=== PATIENT | female | born 1940 | race American Indian/Alaskan Native ===

== ENCOUNTER 2016-12-28 15:11 | Emergency (ER) | payer BC ==
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
[2016-12-28] MEDS ORDERED: NORCO 10/325 PO ONE (21:12)
[2016-12-28 22:15] VITALS: BP 170/92
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
== END 2016-12-28 23:40 | disposition left against medical advice (07) ==
LOC: ED 15:11
DX: S09.90XA Unspecified injury of head, initial encounter (principal); S40.012A Contusion of left shoulder, initial encounter; S20.211A Contusion of right front wall of thorax, initial encounter; R91.8 Other nonspecific abnormal finding of lung field; G93.9 Disorder of brain, unspecified; M19.90 Unspecified osteoarthritis, unspecified site; I10 Essential (primary) hypertension; V89.2XXA Person injured in unspecified motor-vehicle accident, traffic, initial encounter; Y93.89 Activity, other specified; Y92.89 Other specified places as the place of occurrence of the external cause; Y99.8 Other external cause status
CPT/HCPCS: 70450; 71250; 72100

== ENCOUNTER 2017-12-28 12:36 | Emergency (ER) | payer BC ==
[2017-12-28 12:49] VITALS: BP 146/80
--- NOTE | 2017-12-28 13:30 | Emergency Department Report ---
ED Rash HPI - HPI Chief Complaint: Skin Rash Stated Complaint: RASH Time Seen by Provider: 12/28/17 13:07 Duration: 1 week Location: Chest, Back, Upper Extremities, Lower Extremities Suspected Cause: Unknown (possibly new laundry detergent) Rash Symptoms: Yes Itching, Yes Blistering, No Facial Swelling, No Tongue/Oral Swelling, No Breathing Difficulties, No Choking Sensation, No Wheezing/Dyspnea, No Peeling, No Fever, No Lightheaded, No Malaise, No Myalgias Severity: moderate Other History: This is a 77 y.o. female that presents with a genearlized rash that is worse to upper back for 1 week. Patient is here with grandson who is not sure what caused rash. She started using a new laundry detergent that received from the [employer] store about 2 weeks ago. She noticed the rash originally on upper back but then it started to spread every where. She is currently not taking anything for itching, but rash itch and worse at night. Denies discharge, swelling, difficulty breathing, drooling, or SOB. ED Review of Systems ROS: Stated complaint: RASH Other details as noted in HPI Constitutional: denies: chills, fever ENT: denies: ear pain, throat pain, congestion Respiratory: denies: cough, shortness of breath, wheezing Cardiovascular: denies: chest pain, palpitations Gastrointestinal: denies: abdominal pain, nausea, vomiting, diarrhea, constipation Skin: lesions (genearlized puritic rash ). denies: rash Neurological: denies: headache, weakness, numbness, paresthesias Psychiatric: denies: anxiety, depression ED Past Medical Hx - Past Medical History Hx Hypertension: Yes (borderline) Hx Congestive Heart Failure: No Hx Diabetes: No Hx Arthritis: Yes Hx Kidney Stones: Yes Hx Asthma: No Hx COPD: No - Surgical History Past Surgical History?: Yes Additional Surgical History: Mastectomy in 2015 - Social History Smoking Status: Never Smoker Substance Use Type: None - Medications Home Medications: Home Medications Medication Instructions Recorded Confirmed Last Taken Type Letrozole 2.5 gm PO DAILY 07/27/13 08/22/13 07/31/13 History Hydrocodone Bit/Acetaminophen 1 each PO Q4-6H PRN #28 tablet 08/02/13 08/22/13 Unknown Rx [Vicodin 5/500] Acetaminophen/Codeine [Tylenol 1 tab PO Q4HR PRN #12 tablet 12/28/16 Unknown Rx /Codeine # 3 tab] Baclofen 20 mg PO BID #20 tablet 12/28/16 Unknown Rx Diclofenac Sodium 75 mg PO BID #14 tablet. 12/28/16 Unknown Rx Prednisone [predniSONE 5 mg (6-Day 5 mg PO .TAPER #1 tab.ds.pk 12/28/17 Unknown Rx Pack, 21 Tabs)] Triamcinolone 0.1% [Kenalog 0.1% 1 applic TP TID #1 tube 12/28/17 Unknown Rx CREAM] Rash Exam - Exam General: Vital signs noted. No distress. Alert and acting appropriately. HEENT: No Periorbital Edema, No Conjuctival Injection, No Chemosis, No Perioral Edema, No Tongue Edema, No Uvular Edema, No Compromised Airway, No Drooling Lungs: Yes Good Air Exchange (Normal Breath Sounds), No Wheezes, No Ronchi, No Stridor, No Cough, No Labored Respirations, No Retractions, No Use of Accessory Muscles, No Other Abnormal Lung Sounds Heart: Yes Regular, No Murmur Skin: Yes Maculopapular Rash (BLE, BUE, anterior trunk and posterior trunk), No Urticarial Rash, No Morbilliform rash, No Bulla(e), No Excoriations, No Weeping , No Tenderness, No Erythema, No Edema, No Encrustations, No Other ED Course Vital Signs 12/28/17 12:46 Temperature 98.1 F Pulse Rate 87 Respiratory 16 Rate Blood Pressure 146/80 O2 Sat by Pulse 98 Oximetry ED Medical Decision Making - Medical Decision Making This is a 77 y.o. female that presents with generalized rash for 1 week. Patient examined by me and stable. No distress noted. Vitals stable. Physical findings susceptible of allergic contact dermatitis. Given dexamethasone 8 mg IM once in ER. Start prednisone taper and triamacolone cream. Discussed plan with patient and she agreed with plan to treat outpatient. Discharged home. Follow up with PCP in 48-72 hours. Critical care attestation.: If time is entered above; I have spent that time in minutes in the direct care of this critically ill patient, excluding procedure time. ED Disposition Clinical Impression: Allergic contact dermatitis Qualifiers: Contact dermatitis trigger: unspecified trigger Qualified Code(s): L23.9 - Allergic contact dermatitis, unspecified cause Disposition: DC-01 TO HOME OR SELFCARE Is pt being admited?: No Does the pt Need Aspirin: No Condition: Stable Instructions: Contact Dermatitis (ED) Additional Instructions: Complete medication as prescribed. Follow up with Primary Care Provider in 2-3 days. Avoid using new detergent to see if that is the cause of rash. Prescriptions: Prednisone [predniSONE 5 mg (6-Day Pack, 21 Tabs)] 5 mg PO .TAPER #1 tab.ds.pk Triamcinolone 0.1% [Kenalog 0.1% CREAM] 1 applic TP TID #1 tube Referrals: [facility] [Outside] - 3-5 Days [facility] [Outside] - 3-5 Days RAJENDRA SCHAFER MD [Staff Physician] - 3-5 Days Time of Disposition: 14:49 Print Language: SALVADOREAN
[2017-12-28] MEDS ORDERED: DECADRON IM ONE (14:49)
== END 2017-12-28 15:02 | disposition home or self-care (01) ==
LOC: ED 12:36
DX: L23.9 Allergic contact dermatitis, unspecified cause (principal); I10 Essential (primary) hypertension; M19.90 Unspecified osteoarthritis, unspecified site; Z90.10 Acquired absence of unspecified breast and nipple; Z87.442 Personal history of urinary calculi
CPT/HCPCS: 96372; 99282; J1100

== ENCOUNTER 2018-12-26 16:59 | Emergency (ER) | payer BC ==
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
[2018-12-26] MEDS ORDERED: ZOFRAN ODT PO ONE (21:31)
[2018-12-26 21:50] LABS: Basophils % (Auto) 0.8 % (0.0-1.8); Eosinophils # (Auto) 0.1 K/mm3 (0.0-0.4); Hematocrit 43.1 % (30.3-42.9); Hemoglobin 14.2 gm/dl (10.1-14.3); Lymphocytes # (Auto) 1.5 K/mm3 (1.2-5.4); Lymphocytes % (Auto) 26.1 % (13.4-35.0); Mean Corpuscular HGB Conc 33 % (30-34); Mean Corpuscular Volume 92 fl (79-97); Monocytes # (Auto) 0.4 K/mm3 (0.0-0.8); Monocytes % (Auto) 6.6 % (0.0-7.3); Platelet Count 159 K/mm3 (140-440); Red Cell Distribution Width 14.9 % (13.2-15.2)
[2018-12-26 21:55] LABS: Bilirubin,Urine NEG (Negative); Blood,Urine SM (Negative); Color,Urine Yellow (Yellow); Mucus,Urine FEW /HPF; Protein,Urine <15 mg/dL mg/dL (Negative); Urobilinogen,Urine < 2.0 mg/dL (<2.0)
--- NOTE | 2018-12-26 22:03 | Emergency Department Report ---
ED Syncope HPI - General Chief Complaint: Syncope Stated Complaint: KNEE PAIN Time Seen by Provider: 12/26/18 21:02 Source: patient, family Exam Limitations: other (memory problems) - History of Present Illness Initial Comments: 78-year-old female with a past medical history of hypertension (not currently on meds), breast cancer status post left breast mastectomy in 2015 currently in remission, and memory problems likely secondary to dementia presents to the hospital with a syncopal episode. Patient lives alone but lives at her residence directly behind her daughter's. While Ambulating outside on the way to her daughter's residence she had a syncopal episode. She cannot recall any preceding symptoms. She is oriented to self, place, but states year is 2008. Patient states she has intermittent chest pain and generalized weakness and fatigue I cannot say whether or not these symptoms preceded her syncopal episode today. She denies headache, nausea, vomiting, dysuria, or fever. She does not have a primary care doctor and has not followed up in several years. Patient uses a cane to ambulate at her baseline - Related Data Allergies/Adverse Reactions: Allergies No Known Allergies Allergy (Unverified 07/27/13 09:40) Home Medications: Ambulatory Orders No Known Home Medications [No Reported Home Medications] 12/26/18 ED Review of Systems ROS: Stated complaint: KNEE PAIN Other details as noted in HPI Comment: All other systems reviewed and negative ED Past Medical Hx - Past Medical History Previous Medical History?: Yes Hx Hypertension: Yes (borderline) Hx Congestive Heart Failure: No Hx Diabetes: No Hx of Cancer: Yes (breast cancer, left breast mastectomy 20) Hx Arthritis: Yes Hx Kidney Stones: Yes Hx Asthma: No Hx COPD: No Additional medical history: "Memory problems possible dementia" - Surgical History Past Surgical History?: Yes Additional Surgical History: Mastectomy in 2014 - Social History Smoking Status: Former Smoker Substance Use Type: Alcohol - Medications Home Medications: Home Medications Medication Instructions Recorded Confirmed Last Taken Type No Known Home Medications [No 12/26/18 12/26/18 Unknown History Reported Home Medications] ED Physical Exam - General Limitations: No Limitations - Other Other exam information: General: No limitations, patient is alert in no acute distress Head exam: Atraumatic, normocephalic Eyes exam: Normal appearance, pupils equal reactive to light, extraocular movem ents intact ENT: Moist mucous membrane, normal oropharynx Neck exam: Normal inspection, full range of motion, no meningismus nontender Respiratory exam: Clear to auscultation bilateral, no wheezes, rales, crackles Cardiovascular: Normal rate and rhythm, normal heart sounds Abdomen: Soft, nondistended, and nontender, with normal bowel sounds, no rebound, or guarding Extremity: Full range of motion normal inspection no deformity Back: Normal Inspection, full range of motion, no tenderness Neurologic: Alert, oriented x32 cranial nerves intact, no motor or sensory deficit, [id number] function intact Psychiatric: normal affect, normal mood Skin: Warm, dry, intact ED Course Vital Signs 12/26/18 12/26/18 12/26/18 17:25 20:30 20:55 Temperature 98.4 F 98.2 F Pulse Rate 72 63 21 L Respiratory 18 21 Rate Blood Pressure 183/77 Blood Pressure 165/117 183/77 [Right] O2 Sat by Pulse 98 99 99 Oximetry 12/26/18 12/26/18 12/26/18 22:01 23:00 23:16 Temperature Pulse Rate 64 72 77 Respiratory 14 17 Rate Blood Pressure 183/90 179/85 194/108 Blood Pressure [Right] O2 Sat by Pulse 99 Oximetry 12/27/18 00:00 Temperature Pulse Rate 70 Respiratory 16 Rate Blood Pressure 146/71 Blood Pressure [Right] O2 Sat by Pulse Oximetry - Consultations Consultation #1: 12/26/18 22:[address] Elkins Neurosurgeon at [facility]. pt and daughter informed ED Medical Decision Making - Lab Data Result diagrams: 12/26/18 21:31 12/26/18 21:31 Lab Results 12/26/18 12/26/18 12/26/18 Range/Units 21:20 21:31 21:31 WBC 5.7 (4.5-11.0) K/mm3 RBC 4.70 (3.65-5.03) M/mm3 Hgb 14.2 (10.1-14.3) gm/dl Hct 43.1 H (30.3-42.9) % MCV 92 (79-97) fl MCH 30 (28-32) pg MCHC 33 (30-34) % RDW 14.9 (13.2-15.2) % Plt Count 159 (140-440) K/mm3 Lymph % (Auto) 26.1 (13.4-35.0) % [place] % (Auto) 6.6 (0.0-7.3) % Eos % (Auto) 1.0 (0.0-4.3) % Baso % (Auto) 0.8 (0.0-1.8) % Lymph # 1.5 (1.2-5.4) K/mm3 [place] # 0.4 (0.0-0.8) K/mm3 Eos # 0.1 (0.0-0.4) K/mm3 Baso # 0.0 (0.0-0.1) K/mm3 Seg Neutrophils % 65.5 (40.0-70.0) % Seg Neutrophils # 3.8 (1.8-7.7) K/mm3 PT (12.2-14.9) Sec. INR (0.87-1.13) APTT (24.2-36.6) Sec. Sodium 141 (137-145) mmol/L Potassium 4.5 (3.6-5.0) mmol/L Chloride 102.8 (98-107) mmol/L Carbon Dioxide 24 (22-30) mmol/L Anion Gap 19 mmol/L BUN 9 (7-17) mg/dL Creatinine 0.9 (0.7-1.2) mg/dL Estimated GFR > 60 ml/min BUN/Creatinine Ratio 10 % Glucose 89 (65-100) mg/dL Calcium 9.6 (8.4-10.2) mg/dL Total Creatine Kinase 107 (30-135) units/L CK-MB (CK-2) 1.8 (0.0-4.0) ng/mL CK-MB (CK-2) Rel Index 1.6 (0-4) Troponin T < 0.010 (0.00-0.029) ng/mL Urine Color Yellow (Yellow) Urine Turbidity Clear (Clear) Urine pH 5.0 (5.0-7.0) Ur Specific [place] 1.015 (1.003-1.030) Urine Protein <15 mg/dl (Negative) mg/dL Urine Glucose (UA) Neg (Negative) mg/dL Urine Ketones Tr (Negative) mg/dL Urine Blood Sm (Negative) Urine Nitrite Neg (Negative) Urine Bilirubin Neg (Negative) Urine Urobilinogen < 2.0 (<2.0) mg/dL Ur Leukocyte Esterase Neg (Negative) Urine WBC (Auto) 1.0 (0.0-6.0) /HPF Urine RBC (Auto) 1.0 (0.0-6.0) /HPF U Epithel Cells (Auto) 3.0 (0-13.0) /HPF Urine Mucus Few /HPF 12/26/18 Range/Units 21:31 WBC (4.5-11.0) K/mm3 RBC (3.65-5.03) M/mm3 Hgb (10.1-14.3) gm/dl Hct (30.3-42.9) % MCV (79-97) fl MCH (28-32) pg MCHC (30-34) % RDW (13.2-15.2) % Plt Count (140-440) K/mm3 Lymph % (Auto) (13.4-35.0) % [place] % (Auto) (0.0-7.3) % Eos % (Auto) (0.0-4.3) % Baso % (Auto) (0.0-1.8) % Lymph # (1.2-5.4) K/mm3 [place] # (0.0-0.8) K/mm3 Eos # (0.0-0.4) K/mm3 Baso # (0.0-0.1) K/mm3 Seg Neutrophils % (40.0-70.0) % Seg Neutrophils # (1.8-7.7) K/mm3 PT 13.0 (12.2-14.9) Sec. INR 0.93 (0.87-1.13) APTT 27.5 (24.2-36.6) Sec. Sodium (137-145) mmol/L Potassium (3.6-5.0) mmol/L Chloride (98-107) mmol/L Carbon Dioxide (22-30) mmol/L Anion Gap mmol/L BUN (7-17) mg/dL Creatinine (0.7-1.2) mg/dL Estimated GFR ml/min BUN/Creatinine Ratio % Glucose (65-100) mg/dL Calcium (8.4-10.2) mg/dL Total Creatine Kinase (30-135) units/L CK-MB (CK-2) (0.0-4.0) ng/mL CK-MB (CK-2) Rel Index (0-4) Troponin T (0.00-0.029) ng/mL Urine Color (Yellow) Urine Turbidity (Clear) Urine pH (5.0-7.0) Ur Specific [place] (1.003-1.030) Urine Protein (Negative) mg/dL Urine Glucose (UA) (Negative) mg/dL Urine Ketones (Negative) mg/dL Urine Blood (Negative) Urine Nitrite (Negative) Urine Bilirubin (Negative) Urine Urobilinogen (<2.0) mg/dL Ur Leukocyte Esterase (Negative) Urine WBC (Auto) (0.0-6.0) /HPF Urine RBC (Auto) (0.0-6.0) /HPF U Epithel Cells (Auto) (0-13.0) /HPF Urine Mucus /HPF - EKG Data -: EKG Interpreted by Mt EKG shows normal: sinus rhythm, axis (qrs -4), QRS complexes (qrsd 90), ST-T waves (flat lat t waves) Rate: normal - EKG Data When compared to previous EKG there are: no significant change - Radiology Data Radiology results: report reviewed PROCEDURE: CT HEAD/BRAIN WO CON TECHNIQUE: CT images of the head were obtained without the use of IV contrast HISTORY: Syncope, fall COMPARISONS: 12/28/2016 FINDINGS: There is an extra-axial left parietotemporal hyperdense soft tissue mass with adjacent erosion of the calvarium, which measures 5.6 cm AP x 4.0 cm transverse x 6.2 cm crani ocaudal, which has sig nificantly increased in size compared to the prior study. There is mass effect on the underlying brain parenchyma, however no midline shift is seen. No CT evidence of vasogenic edema. No hydrocephalus. No evidence of intracranial hemorrhage. Intracranial arteries are symmetric in density. No acute fracture is seen. There is right maxillary sinus and partial retention cyst or polyp. IMPRESSION: There is an extra-axial left parietotemporal mass with adjacent osseous erosion and underlying parenchymal mass effect which has significantly increased in size compared to the prior study. C annot exclude malignancy. Recommend further evaluation. Findings were discussed with Dr. Cook by telephone at 6:44 PM central standard time on 12/26/2018. Pcxr: naf - Medical Decision Making Patient and daughter at the bedside and informs worsening brain mass compared to 2017. Daughter states she was unaware the patient had a brain mass on previous scan. On previous medical records review case was apparently discussed between treating provider, grandson, and patient and follow-up was recommended with both an oncologist and primary care doctor. Apparently, patient did not follow- up. - Differential Diagnosis arrhythmia, vasovagal, dehydration, infection, anemia, CVA, ICH, PE, NV Critical Care Time: No Critical care attestation.: If time is entered above; I have spent that time in minutes in the direct care of this critically ill patient, excluding procedure time. ED Disposition Clinical Impression: Brain mass, Syncope, Uncontrolled hypertension, Noncompliance with medication regimen, Memory problem, Hx of breast cancer, Hx of left mastectomy Disposition: DC/TX-70 ANOTHER TYPE HLTHCARE Is pt being admited?: No Condition: Stable Time of Disposition: 23:01 (accepted by Neurosurgeon at [facility])
[2018-12-26 22:07] LABS: Creatine Kinase MB 1.8 ng/mL (0.0-4.0)
[2018-12-26 22:09] LABS: BUN/Creatinine Ratio 10; Blood Urea Nitrogen 9 mg/dL (7-17); Calcium 9.6 mg/dL (8.4-10.2); Hemolysis Index 6; INR 0.93 (0.87-1.13); Partial Thromboplastin Time 27.5 Sec. (24.2-36.6)
[2018-12-26] MEDS ORDERED: NORMODYNE IV ONE (22:58)
--- NOTE | 2018-12-26 23:31 | XRay Report ---
PROCEDURE: XR CHEST 1V AP TECHNIQUE: Chest radiograph single view. HISTORY: syncope COMPARISONS: None . FINDINGS: Heart: Normal. Mediastinum/Vessels: Calcified lymph nodes are noted in the left hilum most likely representing old h ealed granulomatous disease. Lungs/Pleural space: Normal. Bony thorax: No acute osseous abnormality. Life support devices: None. IMPRESSION: No acute cardiopulmonary abnormality. This document is electronically signed by Link Starr MD., December 26 2018 11:29:41 PM ET
[2018-12-27 00:03] VITALS: BP 146/71
== END 2018-12-27 01:43 | disposition other institution (70) ==
LOC: ED 16:59
DX: G93.89 Other specified disorders of brain (principal); I10 Essential (primary) hypertension; Z91.14 Patient's other noncompliance with medication regimen; Z85.3 Personal history of malignant neoplasm of breast; M19.90 Unspecified osteoarthritis, unspecified site; Z87.891 Personal history of nicotine dependence
CPT/HCPCS: 36415; 70450; 71045; 80048; 81001; 82550; 82553; 84484; 85025; 85610; 85730; 93005; 93010; 96374